=== PATIENT | female | born 1970 | race Caucasian/White ===

== ENCOUNTER 2021-04-03 15:24 | Emergency (ER) | payer BC ==
[2021-04-03 16:49] LABS: #Lymphocytes 0.3 thou/uL (1.20-3.40); #Monocytes 0.3 thou/uL (0.11-0.59); #Neutrophils 10.1 thou/uL (1.40-6.50); %Basophils 0.2 % (0.0-1.0); %Lymphocytes 2.4 % (21.0-51.0); %Monocytes 3.1 % (0.0-10.0); %Neutrophils 94.2 % (42.0-75.0); Hemoglobin 14.4 g/dL (12.0-16.0); Mean Corpuscular HGB CONC 31.6 g/dL (32.0-36.0); Mean Corpuscular Hemoglobin 29.1 pg (27.0-31.0); Mean Corpuscular Volume 92.2 fL (78.0-98.0); Mean Platelet Volume 8.7 fL (7.4-10.4); Platelet Count 229 thou/uL (130-400); RBC Distribution Width 11.8 % (11.5-14.5); Red Blood Cell (RBC) Count 4.96 mill/uL (4.20-5.40); White Blood Cell (WBC) Count 10.7 thou/uL (4.8-10.8)
[2021-04-03] MEDS ORDERED: Ondansetron PF 4 MG/2 ML Vial ONE (17:02)
[2021-04-03 17:07] LABS: ALT (SGPT) 22 U/L (8-55); AST (SGOT) 21 U/L (5-34); Albumin 4.4 g/dL (3.5-5.0); Alkaline Phosphatase 73 U/L (40-110); Anion Gap 16 mmol/L (10-20); BUN (Urea Nitrogen) 26 mg/dL (9.8-20.1); Bilirubin, Total 0.7 mg/dL (0.2-1.2); CRP (Inflammatory) 1.69 mg/dL (= or < 0.5); Calc. Creatinine Clearance 0 mL/min (70-130); Calcium 9.6 mg/dL (7.8-10.44); Carbon Dioxide 23 mmol/L (22-29); Chloride 105 mmol/L (98-107); Glucose 113 mg/dL (70-105); Potassium 4.1 mmol/L (3.5-5.1); Protein, Total 7.4 g/dL (6.0-8.3); Sodium 140 mmol/L (136-145)
[2021-04-03] MEDS ORDERED: Diphenoxylate HCl/Atropine Tablet ONE (18:24)
== END 2021-04-03 19:53 | disposition home or self-care (01) ==
LOC: MADERS 15:24
DX: K52.9 Noninfective gastroenteritis and colitis, unspecified (principal); E86.0 Dehydration; I10 Essential (primary) hypertension; I48.91 Unspecified atrial fibrillation
CPT/HCPCS: 71045; 80053; 82550; 84484; 85025; 86140; 93005; 94760; 96361; 96374; J2405

== ENCOUNTER 2024-03-20 03:19 | Emergency (ER) | payer BC ==
[2024-03-20] MEDS ORDERED: Morphine 4 MG/ML VIAL ONE (03:45)
[2024-03-20] MEDS ORDERED: Ondansetron PF 4 MG/2 ML Vial ONE (03:45)
[2024-03-20] MEDS ORDERED: Sodium Chloride 0.9% 1,000 ML ONE (03:46)
[2024-03-20 03:50] LABS: #Basophils 0.1 thou/uL (0.0-0.2); #Lymphocytes 1.6 thou/uL (1.20-3.40); #Monocytes 0.6 thou/uL (0.11-0.59); #Neutrophils 9.5 thou/uL (1.40-6.50); %Basophils 0.5 % (0.0-1.0); %Eosinophils 0.1 % (0.0-10.0); %Lymphocytes 13.5 % (21.0-51.0); %Monocytes 5.2 % (0.0-10.0); %Neutrophils 80.8 % (42.0-75.0); Hematocrit 41.9 % (36.0-47.0); Hemoglobin 12.9 g/dL (12.0-16.0); Mean Corpuscular HGB CONC 30.7 g/dL (32.0-36.0); Mean Corpuscular Hemoglobin 27.6 pg (27.0-31.0); Mean Corpuscular Volume 89.7 fl (78.0-98.0); Mean Platelet Volume 7.2 fL (7.4-10.4); Platelet Count 217 10x3/uL (130-400); RBC Distribution Width 12.1 % (11.5-14.5); Red Blood Cell (RBC) Count 4.67 mill/uL (4.20-5.40); White Blood Cell (WBC) Count 11.7 10x3/uL (4.8-10.8)
[2024-03-20 03:58] LABS: BHCG - Serum Negative (NEGATIVE)
[2024-03-20 03:59] LABS: Bilirubin Negative (Negative); Blood, Urine Negative (Negative); Clarity Turbid (Clear); Glucose, Urine (Dipstick) Negative (Negative); Ketone, Urine 80 mg/dL (Negative); Leukocyte Negative (Negative); Nitrite Negative (Negative); Protein, Urine (Dipstick) Negative (Neg-Trace); Urobilinogen 0.2 mg/dL (Less than 2); pH, Urine 8.5 (5.0-9.0)
[2024-03-20 03:59] LABS: INR-International Normal Ratio 0.9; Pregs Control Background? CLEAR/WHITE (CLR/WHITE); Pregs Control Bar Appear? YES (CONTROL BAR); Prothrombin Time 12.3 sec (12.0-14.7)
[2024-03-20 04:00] LABS: PTT 33.2 sec (22.9-36.1)
[2024-03-20] MEDS ORDERED: Haloperidol Lactate 5 MG/ML VIAL ONE (04:00)
[2024-03-20 04:02] LABS: CAUTI Indications for Culture Pelvic or flank pain; RBC/HPF None Seen HPF (0-3); Squamous Epithelial 0-3 HPF (0-3); WBC/HPF 0-3 HPF (0-3)
[2024-03-20 04:03] LABS: Urine Culture Reflex No No
[2024-03-20 04:10] LABS: ALT (SGPT) 25 U/L (8-55); AST (SGOT) 21 U/L (5-34); Albumin 4.6 g/dL (3.5-5.0); Alkaline Phosphatase 87 U/L (40-110); Anion Gap 19 mmol/L (10-20); BUN (Urea Nitrogen) 20 mg/dL (9.8-20.1); Bilirubin, Total 0.6 mg/dL (0.2-1.2); Calc. Creatinine Clearance 0 mL/min (70-130); Calcium 10.1 mg/dL (7.8-10.44); Carbon Dioxide 22 mmol/L (22-29); Chloride 100 mmol/L (98-107); Estimated GFR 70; Glucose 125 mg/dL (70-105); Lipase 50 U/L (8-78); Potassium 3.9 mmol/L (3.5-5.1); Protein, Total 7.6 g/dL (6.0-8.3); Sodium 137 mmol/L (136-145); Troponin I Less than 0.010 ng/mL (< 0.028)
[2024-03-20] MEDS ORDERED: diphenhydrAMINE 50 MG/ML VIAL ONE (04:30)
[2024-03-20] MEDS ORDERED: HYDROmorphone 0.5 MG/0.5 ML SYRINGE ONE (04:31)
[2024-03-20] MEDS ORDERED: LevoFLOXacin 750 mg/D5W 150 ml Premix Bag ONE (05:47)
[2024-03-20 08:40] LABS: Lactic Acid 0.8 mmol/L (0.5-2.2)
[2024-03-20] MEDS ORDERED: Iopamidol 370 76% 100 ML VIAL ONE (09:00)
== END 2024-03-20 08:43 | disposition short-term general hospital (02) ==
LOC: MADERS 03:19
DX: K80.20 Calculus of gallbladder without cholecystitis without obstruction (principal); E87.20 Acidosis, unspecified; I10 Essential (primary) hypertension
CPT/HCPCS: 74174; 80053; 81001; 83605; 83690; 84484; 84703; 85025; 85610; 85730; 93005; 96361; 96365; 96366; 96372; 96375; J1170; J1200; J1630; J1956; J2270; J2405; J7050; Q9967